=== PATIENT | male | born 1950 | race Caucasian/White ===

== ENCOUNTER 2017-05-28 09:38 | Inpatient (IN) | payer MEDICARE ==
[~2017-05-28] VITALS: Ht 177.8 cm; Wt 71.1 kg
[2017-05-28 09:52] VITALS: BP 158/79; PULSE 75; RESP 13; O2SAT 100
--- NOTE | 2017-05-28 09:53 | ED.REPORT ---
HPI-General Illness Date of Service May 28, 2017 ED Provider: Sixto Lux MD Patient is a 67 year old male who presents to the ED via EMS complaining of dizziness onset 0400 this morning. Associated symptoms include nausea, brief bilateral vision blurring, diarrhea (onset last night), and worsening headache. He denies difficulty speaking or swallowing, vision loss, numbness, weakness, tingling, vomiting, or any other symptoms. He reports increasing headaches over the past few months for which he takes OTC medications. He was given zofran en route with moderate relief. Pt denies a hx of a stroke. He has not been on abx recently. Nursing Notes Stated Complaint: DIZZINESS Chief Complaint: Male Abdominal Pain Nursing Notes Reviewed: Yes Allergies: Coded Allergies: No Known Allergies (Unverified , 05/28/17) No Active Prescriptions or Reported Meds General Time Seen by MD: 09:49 Chief Complaint Dizziness Hx Obtained From: Patient, Spouse Arrived By: Ambulance Similar Sx Previous: No Past Medical History Past Medical History Liver abscess Pre-diabetic Past Surgical History Liver abscess tube Family History Both parents had diabetes Smoking History Unknown if Ever Smoker Social History Drinks alcohol very rarely Other Social History: (partnered ) Ambulatory Status Independent Review of Systems -tingling Full Review of Systems Eyes: Reports: Blurred bilateral, Denies: Visual loss bilateral GI: Reports: Diarrhea, Nausea, Denies: Dysphagia, Vomiting Neurologic: Reports: Dizziness, Headache, Denies: Numbness, Slurred speech, Weakness Complete sys rev & neg: except as marked. Physical Exam Vital Signs Vital Signs Date Time Temp Pulse Resp B/P Pulse Ox O2 Delivery O2 Flow Rate FiO2 05/28/17 09:52 36.6 75 13 158/79 100 Room Air Initial VS: Reviewed, Vital signs abnormal Head / Eyes: Atraumatic, Normocephalic Neck: Supple, Full range of motion Skin: Warm, Dry Psychiatric: Mood/affect normal, Behavior normal, Normal thought content General/Constitutional: Awake, Alert, No acute distress Respiratory / Chest: Atraumatic, Breath sounds NL, Breath sounds = bilat, No respiratory distress Cardiovascular: Heart rate NL, Regular rhythm, Heart sounds NL, No murmurs Abdomen: Atraumatic, Soft, Non-tender Neurologic: Oriented X3, Speech NL, No motor deficits, No sensory deficits, CN II - XII intact Eibfuh-ydtx-nqizxa intact Heel to vang intact Interpretation & Diagnostics Lab Results Interpretation Result Diagram: 05/28/17 1023 05/28/17 1023 Test 05/28/17 10:23 White Blood Count 6.5th/mm3 (3.8-10.1) Red Blood Count 4.84mil/mm3 (4.40-5.80) Hemoglobin 14.8g/dL (13.8-17.2) Hematocrit 41.8% (41.0-50.0) Mean Corpuscular Volume 86.4fL (81-100) Mean Corpuscular Hemoglobin 30.6pg (27.0-35.0) Mean Corpuscular Hemoglobin Concent 35.4% (32.0-37.0) Red Cell Distribution Width 12.5% (12.3-15.4) Platelet Count 135bil/L (150-400) Neutrophils (%) (Auto) 46.9% (40-74) Lymphocytes (%) (Auto) 38.4% (14-46) Monocytes (%) (Auto) 9.8% (4-12) Eosinophils (%) (Auto) 3.5% (0-5) Basophils (%) (Auto) 1.4% (0-3) Sodium Level 137mEq/L (134-144) Potassium Level 4.1mEq/L (3.5-5.2) Chloride Level 101mEq/L (97-108) Carbon Dioxide Level 22mmol/L (18-29) Blood Urea Nitrogen 15mg/dL (8-27) Creatinine 1.01mg/dL (0.76-1.27) Estimat Glomerular Filtration Rate 78mL/min (>59) Glucose Level 220mg/dL (60-99) Calcium Level 9.3mg/dL (8.5-10.1) Total Bilirubin 0.7mg/dL (0.0-1.2) Aspartate Amino Transf (AST/SGOT) 21U/L (0-50) Alanine Aminotransferase (ALT/SGPT) 20U/L (0-44) Alkaline Phosphatase 72U/L (25-160) Troponin T 0.010ug/L (0.0-0.011) Total Protein 7.3g/dL (6.4-8.4) Albumin 4.1g/dL (3.4-5.0) Lipase 33U/L (13-60) Lab Results Interpretation: MRI BRAIN: IMPRESSION: 1. No acute intracranial disease process. 2. Foci of increased T2 signal in the periventricular and subcortical white matter tracts. Finding is nonspecific and of the patient's history typically represents chronic microvascular ischemic changes, however there is a single lesion in the right periventricular white matter that has imaging characteristics suspicious for multiple sclerosis. Please correlate with clinical data. 3. Absence of flow-void in the V4 segment of the left vertebral artery. Recommend MR angiogram of the head and neck to differentiate high grade atherosclerotic stenosis from proximal occlusion. Dictated by: Yolis Rader MD, PhD on 05/28/2017 at 13:01 Approved by: Yolis Rader MD, PhD on 05/28/2017 at 13:27 ECG Interpretation ECG Interpretation: sinus rate [address], T changes Q wave 3, AVF Unchanged from old Time: 10:38 Interpreted by: ED physician CT Head Interpretation IMPRESSION: 1. No acute intracranial findings. 2. Mild findings likely associated with chronic ischemic changes. Dictated by: Felicia Beauchamp M.D. on 05/28/2017 at 10:36 Approved by: Felicia Beauchamp M.D. on 05/28/2017 at 10:40 Study: Head CT no contrast Interpretation / Wet Read by: Interpret - Radiologist Re-Eval/Medical Decision Med Decision/Clinical Course 67-year-old male presenting with dizziness and difficulty ambulating on waking up today. He has an ataxic gait here which did not resolve throughout his time in our care. He had 15 point drop in systolic blood pressure on standing up. Symptoms did not resolve with IV fluids. His labs are unremarkable. CT scan pathology. MR brain was performed which showed left vertebral artery stenosis and lesion concerning for possible MS. Given he is still unable to ambulate which he has never had before patient will be admitted to the hospital for MRA and further workup. Time of Eval: 11:03 Re-Evaluation/Progress Note: Rechecked pt who reports he woke with his symptoms this morning. His last known normal is last night. Discussed plan for MRI and admission. Patient understands and agrees with plan. All questions addressed at this time. Consultation : Referral / Consult Name: Dejan Overton MD Consulted With: Hospitalist Call Returned at: 13:49 Horticulture Supervisor: Will see patient, Agrees with eval, Agrees with plan, Accepts admit Note: Discussed pt's case. Accepts admit. Counseled Regarding: Diagnosis, Lab results, Need for admission Discharge & Departure Primary Impression: Dizziness Additional Impression: Vertebral artery occlusion Laterality: unspecified laterality Qualified Code: I65.09 - Occlusion and stenosis of unspecified vertebral artery Disposition: ADMITTED TO HOSPITAL Discharge Condition All VS Reviewed: Yes Condition: Stable Referrals: NOPCP (PCP) Crit Care Except Billable Proc Time Spent: 30-74 minutes Services Performed: Patient management by me, Time spent at bedside, Reviewing test results, Reviewing imaging, Discussing patient care, Documentation in record, Time with fam/surrogate Critical Care Notes: 30 min Scribe Attestation Portions of this note were transcribed by Ramon Romero. I, Dr. Lux personally performed the history, physical exam and medical decision-making; I reviewed and confirmed the accuracy of the information in the transcribed note. Signed by: Juanjose Hassan, 05/28/17 Risk Factors )( TPA Administration/Criteria Stroke Thrombolytic Therapy : TPA Considered: Yes TPA Administered Intravenously: No, not indicated NIH Stroke Scale Level of Consciousness: Alert and responsive (0) Ask Month & Age: Both questions right (0) Open/Close Eyes/Hand Wrapper Stemmer Hand: Performs both tasks (0) Horizontal EO Movements: None (0) Visual Stephens: No visual loss (0) Facial Palsy: Normal symmetry (0) Right Arm Motor Drift (10s): No drift 10 sec (0) Left Arm Motor Drift (10s): No drift 10 sec (0) Right Leg Motor Drift (5s): No drift 5 sec (0) Left Leg Motor Drift (5s): No drift 5 sec (0) Limb Ataxia FNF/Heel-Vang: No ataxia (0) Sensation (Arms/Legs/Face): No sensory loss (0) Language Aphasia: No aphasia, normal (0) Dysarthria: No dysarthria, normal (0) Extinction/Inattention: No exctinct/inattent (0) NIHSS Score: 0 Time NIHSS Performed: 10:15 Date NIHSS Performed: May 28, 2017 )( CVA Risk Stratification Age >60No EtOH use, No Hyperlipidemia, No Prior CVA/TIA Risk factors reviewed Sixto Lux MD May 28, 2017 09:52 RAMON ROMERO May 28, 2017 10:07
[2017-05-28] MEDS ORDERED: 0.9% Sodium Chloride 500 ML IV ONE (10:18)
[2017-05-28] MEDS ORDERED: Ondansetron 2 mg/mL 2 mL Inj IVPUSH PRN ×3 (10:20→15:40)
[2017-05-28 10:27] LABS: BASOPHILS % (AUTO) 1.4 % (0-3); EOSINOPHILS % (AUTO) 3.5 % (0-5); MONOCYTES % (AUTO) 9.8 % (4-12); Mean Corpuscular Hemoglobin 30.6 pg (27.0-35.0); Mean Corpuscular Volume 86.4 fL (81-100); NEUTROPHILS % (AUTO) 46.9 % (40-74); Platelet Count 135 bil/L (150-400)
[2017-05-28 10:40] LABS: TROPONIN T 0.01 ug/L (0.0-0.011)
--- NOTE | 2017-05-28 10:41 | DRSVH ---
PROCEDURE: CT BRAIN WITHOUT CONTRAST ([id number]) INDICATIONS: dizziness TECHNIQUE: Noncontrast 4.5 mm thick angled axial sections acquired from the foramen magnum to the vertex, with c oronal reformats. COMPARISON: None. FINDINGS: Image quality: Excellent. CSF spaces: Basal cisterns are patent. No extra-axial fluid collections. The ventricles are symmet soledad in size and shape. Brain: No intracranial bleeds or masses. There is cerebral volume loss for age, with resultant vent ricular and sulcal prominence. There are periventricular and deep white matter chronic small vessel ischemic changes. There is intracranial internal carotid artery atherosclerosis. Skull and face: Calvarium and visualized facial bones appear intact, without suspicious lesions. Sinuses: Visualized sinuses and mastoids are clear. IMPRESSION: 1. No acute intracranial findings. 2. Mild findings likely associated with chronic ischemic changes. Dictated by: Felicia Beauchamp M.D. on 05/28/2017 at 10:36 Approved by: Felicia Beauchamp M.D. on 05/28/2017 at 10:40
--- NOTE | 2017-05-28 13:21 | NUR ---
Evaluation completed. Please go to "Notes" then click on "Assessments and Notes" (bottom left corner of screen). Then select appropriate discipline tab on top of screen.
--- NOTE | 2017-05-28 13:29 | DRSVH ---
PROCEDURE: MRI BRAIN WITHOUT CONTRAST ([id number]) INDICATIONS: dizziness TECHNIQUE: Non-contrast axial T1 spin echo, axial T2 fast spin echo, sagittal and axial FLAIR, coronal T2 fast s pin echo, axial gradient echo, axial diffusion and ADC through the brain. COMPARISON: [facility], CT, CT BRAIN WO CON, 05/28/2017, 10:29. FINDINGS: Image quality: Excellent. CSF spaces: Ventricles appear symmetric in size and shape. Basal cisterns are patent. No extra-axi al fluid collections. Brain: No intracranial bleeds or mass effects. There is cerebral volume loss for age. There are mul tiple foci of increased T2/flair signal the periventricular and subcortical white matter tracts. Sing le focus of increased T2 signal in the right periventricular white matter has a longitudinal axis per pendicular to long axis of the lateral ventricles. Brainstem appears normal. Diffusion-weighted imag es show no acute ischemic insults. No chronic ischemic insults. Absence of flow void noted in the V4 segment of the left vertebral artery suspicious for proximal occlusion or atherosclerotic high-grade stenosis. Skull and face: Calvarial bone marrow is normal in signal. Orbits are normal. Sinuses: Sinuses are clear. Trace fluid noted in the dependent portion of the mastoid air cells bila terally. IMPRESSION: 1. No acute intracranial disease process. 2. Foci of increased T2 signal in the periventricular and subcortical white matter tracts. Finding is nonspecific and of the patient's history typically represents chronic microvascular ischemic changes , however there is a single lesion in the right periventricular white matter that has imaging charact eristics suspicious for multiple sclerosis. Please correlate with clinical data. 3. Absence of flow-void in the V4 segment of the left vertebral artery. Recommend MR angiogram of the head and neck to differentiate high grade atherosclerotic stenosis from proximal occlusion. Dictated by: Yolis Rader MD, PhD on 05/28/2017 at 13:01 Approved by: Yolis Rader MD, PhD on 05/28/2017 at 13:27
[2017-05-28] MEDS ORDERED: Alum-Mag Hydrox-Simeth 30 mL Suspension PO PRN ×2 (14:15→15:40)
--- NOTE | 2017-05-28 14:31 | NUR ---
Admit Report received from Ed nurse. Awaiting patient from ED. Med Req and admission done by admit nurse.
[2017-05-28 14:43] VITALS: BP 155/74; PULSE 74; RESP 18; O2SAT 99
[2017-05-28 15:02] VITALS: BP 142/87; PULSE 75; PULSE 82; O2SAT 99
--- NOTE | 2017-05-28 15:08 | NUR ---
To [facility] patient arrived to unit approx 1455. BP 142/87, pulse 80, oxygen 98%, Temp 98.1. patient transferred from ED bed to unit bed with out any reports of further dizziness. Denies pain or discomfort. No reports of cardiac or respiratory distress. Alert and oriented x3. SBA ambulation. hospitalist aware. new orders for urinalysis. family history of diabetes, blood sugar per lab 220. admit and med req done. per patient no other home medications but Tylenol for [place] as needed. Call light with in reach for safety and educated. continue to monitor vital signs, pain, dizziness and safety.
[2017-05-28] MEDS ORDERED: Polyethylene Glycol (PEG) 17 Gm Powder PO PRN (15:40)
[2017-05-28] MEDS ORDERED: Labetalol 5 mg/mL 20 mL Inj IVPUSH PRN (15:40)
--- NOTE | 2017-05-28 17:09 | DRSVH ---
PROCEDURE: US BILATERAL DUPLEX DOPPLER IMAGING OF THE CAROTIDS ([id number]) INDICATIONS: R/O Carotid Disease if no MRA or CTA Neck TECHNIQUE: Color and pulse Doppler interrogation was performed of both carotid systems, with image documentation and velocity measurements. COMPARISON: None. FINDINGS: All stenosis calculations are based on NASCET criteria. Right side: Brachial blood pressure: 143/79 mm Hg. Common Carotid Artery(Distal) PSV: 89.80 cm/s Internal Carotid Artery PSV- Proximal: 83 cm/s Mid-lon.20 cm/s Distal: 99.40 cm/s EDV - Proximal: 17.10 cm/s Mid-lon.20 cm/s Distal: 26.10 cm/s External Carotid Artery(Proximal) PSV: 79.50 cm/s ICA/CCA PSV ratio: 1.1 Dee scale imaging description: Moderate plaque. Percent internal carotid artery stenosis: Less than 50% stenosis. Vertebral artery: Flow direction is antegrade. Left side: Brachial blood pressure: 145/75 mm Hg. Common Carotid Artery(Distal) PSV: 97.50 cm/s Internal Carotid Artery PSV - Proximal: 73.40 cm/s Mid-lon.20 cm/s Distal: 90.70 cm/s EDV - Proximal: 14.20 cm/s Mid-lon.70 cm/s Distal: 25.30 cm/s External Carotid Artery(Proximal) PSV: 88.20 cm/s ICA/CCA PSV ratio: 0.9 Dee scale imaging description: Moderate scattered plaque. Percent internal carotid artery stenosis: Less than 50% stenosis. Vertebral artery: No flow detected. IMPRESSION: Less than 50% bilateral internal carotid artery stenosis. No flow visualized within the left vertebral artery. Dictated by: Stan Cruz [facility] Interpreted: Yolis Rader MD on 05/28/2017 at 16:55 Approved by: Yolis Rader MD, PhD on 05/28/2017 at 17:05
[2017-05-28] MEDS ORDERED: Glucose 40% Oral Gel 15 Gm Tube PO PRN (17:10)
--- NOTE | 2017-05-28 17:10 | PCM.HPMED ---
Subjective Date of Service May 28, 2017 Primary Provider: Admitting Physician: Dejan Overton MD Primary Care Physician: Sam Attending Physician: Dejan Overton MD Admit Status: From the Emergency Department, Admit to [place] Team Chief Complaint: Dizziness History of Present Illness: 67-year-old lb male with history of prediabetes, no other significant known past medical history presenting to the emergency department complaining of dizziness for 1 day. Associated symptoms include nausea, brief bilateral vision blurring, and worsening headache. He denies difficulty speaking or swallowing, vision loss, numbness, weakness, tingling, vomiting, or any other symptoms. Did have episode of diarrhea. Patient does endorse headaches over the last few months which responded to Tylenol. Never had any similar symptoms in the past. Denies any medication changes Review of Systems: 12 point review of symptoms negative except without any history of present illness Allergies Coded Allergies: No Known Allergies (Unverified , 05/28/17) PMH Social History Hx Alcohol Use: Yes ("occasionally") Hx Substance Use: No Smoking Status: Unknown if Ever Smoker Exam Vital Signs Vital Sign - Last Date Time Temp Pulse Resp B/P Pulse Ox O2 Delivery O2 Flow Rate FiO2 05/28/17 15:02 36.7 75 142/87 99 Room Air 05/28/17 14:43 18 Lab and Diagnostics Result Diagram: 05/28/17 1023 05/28/17 1023 Assessment & Plan 67-year-old lb male with history of prediabetes, no other significant known past medical history presenting to the emergency department complaining of dizziness for 1 day. Associated symptoms include nausea, brief bilateral vision blurring, and worsening headache found to have ataxic gait in ED admitted to rule out Posterior Circulation CVA. Gait Ataxia due to suspected Posterior CVA-poa, active. may be posterior circulation issue. Differential included Vertigo. Review med. MRI Brain- no acute infarct noted. Absence of flow-void in the V4 segment of the left vertebral artery. Radiology Recommend MR angiogram of the head and neck to differentiate high grade atherosclerotic stenosis from proximal occlusion. rule out Posterior Circulation CVA. Echo ordered, Carotid US ordered. Med Management- asa/statin. PT/OT ordered. PreDiabetes- chronic, active Check A1C, fingerstick TID. Added SSI medium dose. Headache, acute, active Tylenol prn. Acetaminophen for mild pain when necessary. Bowel regimen Senna and MiraLAX scheduled and PRN. Zofran when necessary for nausea and vomiting. Code- Full Dispo- Patient is admitted under observation status expected length of stay less than 2 midnights due to severity of presenting symptoms, risk of adverse events, and complexity of treatment plan. Pain Evaluation: Adequate Pain Control VTE Prophylaxis: Sub-Q Heparin (Unfractionated) Resuscitation Status: CPR: Attempt Resuscitation Dejan Overton MD May 28, 2017 17:10
[2017-05-28 17:33] LABS: APPEARANCE,URINE CLEAR (CLEAR,HAZY); COLOR,URINE YELLOW (YELLOW); OCCULT BLOOD,URINE NEGATIVE (NEGATIVE); UROBILINOGEN,URINE NORMAL (NORMAL)
[2017-05-28] MEDS: Insulin LISPRO 300 Unit/3 mL Inj SUBQ SCH ×2 (18:22→22:15)
[2017-05-28] MEDS: 0.9% Sodium Chloride 1,000 ML IV SCH (18:23)
--- NOTE | 2017-05-28 18:33 | NUR ---
Mentation Calm and cooperative mood. per lab glucose 220 and blood sugar prior to dinner 166, new orders for sliding scale and A1c pending. Urine sample sent to lab. Carotid US done this shift. New orders for PT, OT, and MR angio with contrast. no skin issues noted per assessment. per patient report liver abscess long time ago when in [place] and had received IV ABO. Swallow screen done by RN per assessment followed. per patient no prior cardiac, respiratory, GI, or neurological history. Denies sign and symptoms of pain or dizziness. SBA for ambulation at this time but prior level of ADL's at home independent and adequate per patient. Diet Dysphagia mechanical with thin fluids for dinner with no signs of aspiration or swallowing difficulty. IV fluids per orders. On Tele, per budget technician S100. Stroke education booklet provided. Call light with in reach and verbalize understanding. Continue to monitor.
[2017-05-28 21:03] VITALS: BP 146/89; PULSE 77; RESP 18; O2SAT 97
[2017-05-29] VITALS (9 sets, daily range): BP systolic 107–154; BP diastolic 67–78; PULSE 74–82; RESP 16–18; O2SAT 95–98
[2017-05-29] MEDS: 0.9% Sodium Chloride 1,000 ML IV SCH (06:32)
[2017-05-29] MEDS: Insulin LISPRO 300 Unit/3 mL Inj SUBQ SCH ×4 (08:12→22:39)
[2017-05-29] MEDS: Heparin 5,000 Unit/mL Inj SUBQ SCH ×3 (08:12→23:43)
--- NOTE | 2017-05-29 09:22 | NUR ---
Evaluation completed. Please go to "Notes" then click on "Assessments and Notes" (bottom left corner of screen). Then select appropriate discipline tab on top of screen.
[2017-05-29] MEDS ORDERED: 0.9% Sodium Chloride 500 ML IV ONE (10:05)
--- NOTE | 2017-05-29 10:39 | NUR ---
Case Management: ANGELIC given and explained to pt. Shikha BRANDRN
--- NOTE | 2017-05-29 11:34 | DRSVH ---
PROCEDURE: MRA ANGIOGRAM HEAD WITHOUT CONTRAST ([id number]) INDICATIONS: R/O Intracrainal Disease If CTA Head/Neck is Contr TECHNIQUE: Noncontrast axial 3-D lqoc-tj-dulles MR angiogram, with 3-dimensional maximum intensity projection (M IP) reformats of the internal carotid arteries and posterior circulation then performed. COMPARISON: [facility], MR, MR ANGIO NECK W&WO CON, 05/29/2017, 10:55. [facility], MR, MR BRAIN WO CON, 05/28/2017, 12:39. [facility], CT, CT BRAIN WO CON, 05/28/2017 , 10:29. FINDINGS: Image quality: Excellent. Anterior circulation: Intracranial internal carotid arteries demonstrate normal size and intralumina l flow signal. The flow within the paired anterior cerebral arteries is normal and symmetric. The f low within the middle cerebral arteries is normal and symmetric. The anterior communicating artery i s seen. No stenoses, occlusions, or aneurysms. Posterior circulation: There is a dominant right vertebral artery. The basilar artery appears patent and unremarkable. There is occlusion of the distal left vertebral artery versus congenital atresia.Th e flow within the posterior cerebral arteries is normal and symmetric. 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 Dominant right vertebral artery Otherwise, remainder of the examination within normal limits Dictated by: Karsten Edwards M.D. on 05/29/2017 at 10:26 Approved by: Karsten Edwards M.D. on 05/29/2017 at 10:32
--- NOTE | 2017-05-29 11:39 | DRSVH ---
PROCEDURE: MRA ANGIOGRAM NECK WITH AND WITHOUT CONTRAST ([id number]) INDICATIONS: R/O Carotid Disease TECHNIQUE: Axial and sagittal TruFISP through the neck. Coronal dynamic MRA after the administration of contras t in the arterial and venous phases, with rotating 3-dimensional maximum intensity projection (MIP) r eformats constructed from subtraction images. COMPARISON: None. FINDINGS: Image quality: Excellent. Carotid system: Great vessels demonstrate a conventional anatomy as they arise from the aortic arch. The origins of the common carotid arteries appear normal. The calibers and courses of the common c arotid arteries are likewise normal. The carotid bifurcations appear normal bilaterally. The r d internship al carotid arteries are widely patent up to the [place] of [place]. Posterior circulation: The origin of the left vertebral artery is not well-seen. There is diffuse dim inutive appearance of the left vertebral artery, demonstrating minimal flow until the V4 segment, whe re there is occlusion The right vertebral artery is dominant. There is a normal appearing basilar artery. Miscellaneous: Subclavian arteries are patent throughout. Pre-contrast images through the neck demo nstrate no soft tissue abnormalities. IMPRESSION: No ICA stenosis seen. Diffuse narrowing of the left vertebral artery, with occlusion of the V4 segment. This is presumably due to atherosclerosis versus congenital atresia. Patent dominant right vertebral artery. The estimate of stenosis included in the report of the imaging study was calculated using the NASCET method Dictated by: Karsten Edwards M.D. on 05/29/2017 at 10:33 Approved by: Karsten Edwards M.D. on 05/29/2017 at 10:38
--- NOTE | 2017-05-29 12:12 | DRSVH ---
[facility] [address] [place] [address] Echocardiogram Report Name: KAYLENE HAMILTONudsuni Pantera e: 05/29/2017 Height: 70 in Hospital Exam Location: [facility] Weight: 159 lb Gender: Male BSA: 1.9 m2 : 1950 Age: 67 yrs BP: 153/75 mmHg Reason For Study: CVA Ordering Physician: HOSPITALIST [facility] Performed By: Luna Hoover Referring Physician: Haresh Londono Interpretation Summary The left ventricle is normal in size, wall thickness, and systolic function without any focal wall motion abnormalities. The ejection fraction is estimated to be 60-65%. The right ventricle is normal size. Right ventricular systolic function is at the lower limits of normal. Pulmonary artery pressures cannot be estimated because of the lack of a measurable TR jet velocity. The left atrial size is normal. Right atrial size is normal. The atrial septum is aneurysmal. Injection of contrast documented no interatrial shunt. There is no significant valvular heart disease. Procedure: A two-dimensional transthoracic echocardiogram with color flow and Doppler was performed. The study quality was technically adequate. There is no prior echocardiogram noted for this patient. A saline contrast injection was performed to assess for cardiac shunting. The patient was in normal sinus rhythm during the exam. Left Ventricle: The left ventricle is normal in size, wall thickness, and systolic function without any focal wall motion abnormalities. The ejection fraction is estimated to be 60-65%. Right Ventricle: The right ventricle is normal size. Right ventricular systolic function is at the lower limits of normal. Atria: The left atrial size is normal. Right atrial size is normal. The atrial septum is aneurysmal. Injection of contrast documented no interatrial shunt. Mitral Valve: The mitral valve is normal in structure and function. There is trace mitral regurgitation. Aortic Valve: The aortic valve is normal in structure and function. No aortic regurgitation is present. Tricuspid Valve: The tricuspid valve is normal. There is a trace or physiologic amount of tricuspid regurgitation. Pulmonary artery pressures cannot be estimated because of the lack of a measurable TR jet velocity. Pulmonic Valve: The pulmonic valve is normal in structure and function. There is trace pulmonic regurgitation. There is no significant valvular heart disease. Great Vessels: The aortic root is normal size. The dimensions of the ascending aorta are normal. The aortic arch is normal in size. The pulmonary artery is normal size. The IVC is of normal diameter and collapses greater than 50% with a sniff. This suggests a low right atrial pressure of 3 mm Hg. Pericardium/ Pleura There is no pericardial effusion. There is no pleural effusion. MMode/2D Measurements & Calculations LVIDd: 4.7 cm LVIDs: 3.4 cm LA A2 area: 17.6 cm FS: 27.3 % LA A4 area: 15.6 cm EPSS: 1.0 cm LA length (vol): 4.4 cm IVSd: 1.0 cm LA vol: 52.4 ml LVPWd: 1.2 cm LA vol index: 27.7 ml/m IVC diam: 1.8 cm RA long axis: 5.1 cm LVOT diam: 2.2 cm RA area: 15.7 cm AoV Openin.9 cm RA vol: 40.7 ml Ao root diam: 3.7 cm RA : 21.5 ml/m2 asc Aorta Diam: 3.4 cm Ao Arch Diam (Prox Trans): 2.7 cm LV barber. diameter/BSA (cm/m^2): 2.5 LV sys. diameter/BSA (cm/m^2): 1.8 RVD1 (basal): 3.8 cm TAPSE: 1.7 cm Doppler Measurements & Calculations Ao V2 max: 120.3 cm/sec MV E max hi: 85.8 cm/sec Ao max P.8 mmHg MV A max hi: 92.0 cm/sec Ao mean P.4 mmHg MV P1/2t: 52.9 msec LVOT Max Hi: 84.7 cm/sec ARMANDO(I,D): 2.9 cm sev ratio: 0.73 MV E/A: 0.93 PA V2 max: 67.5 cm/sec Med Peak E' Hi: 3.3 cm/sec PA mean P.1 mmHg E/E' med: 26.3 Lat Peak E' Hi: 5.2 cm/sec E/E' lat: 16.6 E/e' average: 21.5 MV dec time: 0.18 sec MV P1/2t max hi: 85.3 cm/sec MVA(P1/2t): 4.2 cm2 Ao V2 mean: 90.0 cm/sec LV V1 max P.9 mmHg Ao V2 VTI: 23.4 cm LV V1 VTI: 17.1 cm ARMANDO(V,D): 2.8 cm2 PA V2 mean: 49.7 cm/sec ARMANDO indexed to BSA (cm^2/m^2): 1.5 Reading Physician:KAMI
--- NOTE | 2017-05-29 13:47 | NUR ---
NUTRITION ASSESSMENT: ASSESS: 67YO M , new dx DM, CVA workup, s/p MRI showing no acute infarct, additional tests pending. Consult received re diabetes education. Pt reports he eats what he wants, is willing to reduce portion sizes and cut pop intake down from 2cups to 1/2 cup per day. Interested in outpatient dm education. Diet modified per ST related to edentulousness. PMHX: Pre-DM, DIET: Dysphagia Mechanical. PO 50% LABS: Alb 4.1 MEDS: Reviewed GI: +BM WEIGHT: 72.3kg BMI: 22.9 EST.NEEDS: 3699-7982 kcal, 70-90g pro (25-30kcal/kg;1.0-1.2g/kg pro) NUTRITION DIAGNOSIS: (1) Food and nutrition related knowledge deficit related to new dm dx as evidenced by no h/o dm education. (2) Chewing difficulty related to pt being edentulous as evidenced by modified diet texture per ST. INTERVENTION: (1) Diet per ST (2) Pt provided diet education. MOC RN referred re glucometer teaching. Pt referred for outpatient dm education. MONITOR/EVALUATE: PO intake, texture tolerance, lab values. F/U per moderate risk.
--- NOTE | 2017-05-29 13:52 | NUR ---
Case Management: IMM given and explained to pt. Shikha BRANDRN
[2017-05-29] MEDS: Insulin GLARgine 100 Unit/mL Syringe SUBQ SCH (13:56)
--- NOTE | 2017-05-29 15:27 | PCM.PNMED ---
Subjective Date of Service May 29, 2017 Subjective Pt reports improved dizziness with standing. Ortho Vital signs positive again in AM. Exam Vital Signs Vital Sign - Last Date Time Temp Pulse Resp B/P Pulse Ox O2 Delivery O2 Flow Rate FiO2 05/29/17 12:24 36.7 78 18 150/78 98 Room Air 152/74 131/73 Intake and Output 05/28/17 05/28/17 05/29/17 Cumulative From/Thru 14:59 22:59 06:59 05/28/17 09:52 - 05/29/17 06:45 Intake Total 500 ml 1067 ml 1567 ml Balance 500 ml 1067 ml 1567 ml Intake Oral 100 ml 100 ml IV Total 500 ml 967 ml 1467 ml # Voids 2 2 # Bowel Movements 1 1 Exam Gen: NAD, AOx4, HEENT: NCAT, PERRLA, EOMI, MMM, sclera anicteric. Neck: Soft, supple, no thyromegaly/JVD/LAD. Resp: CTAB, no R/R/W. CV: S1 S2, RRR, No M/R/G Abd: Soft, (+) BS, NT/ND, no guarding/rebound/organomegaly. Ext: +PP, No edema. Skin: warm/dry/intact Neuro/Psych: Cooperative, appr mood/affect. CN II-XII grossly intact. No focal deficits. IVs and Medications Medications Reviewed: Medications were reviewed in detail Lab and Diagnostics Result Diagram: 05/28/17 1023 05/28/17 1023 X-Rays, CTs and MRIs 05/29/17 MRA ANGIOGRAM NECK WITH AND WITHOUT CONTRAST IMPRESSION: No ICA stenosis seen. Diffuse narrowing of the left vertebral artery, with occlusion of the V4 segment. This is presumably due to atherosclerosis versus congenital atresia. Patent dominant right vertebral artery. 05/29/17 MRA ANGIOGRAM HEAD WITHOUT CONTRAST Occlusion of the distal left vertebral artery. Dominant right vertebral artery Otherwise, remainder of the examination within normal limit 05/29/17 Carotid US- Less than 50% bilateral internal carotid artery stenosis. No flow visualized within the left vertebral artery. 05/29/17 MRI BRAIN WITHOUT CONTRAST 1. No acute intracranial disease process. 2. Foci of increased T2 signal in the periventricular and subcortical white matter tracts. Finding is nonspecific and of the patient's history typically represents chronic microvascular ischemic changes, however there is a single lesion in the right periventricular white matter that has imaging characteristics suspicious for multiple sclerosis. Please correlate with clinical data. 3. Absence of flow-void in the V4 segment of the left vertebral artery. Recommend MR angiogram of the head and neck to differentiate high grade atherosclerotic stenosis from proximal occlusion. 05/28/17 CT BRAIN WITHOUT CONTRAST 1. No acute intracranial findings. 2. Mild findings likely associated with chronic ischemic changes. Assessment & Plan 67-year-old pleasant male with history of prediabetes, no other significant known past medical history presenting to the emergency department complaining of dizziness for 1 day. Associated symptoms include nausea, brief bilateral vision blurring, and worsening headache found to have ataxic gait in ED admitted to rule out Posterior Circulation CVA. with finding of Gait Ataxia-poa, active. No evidence of CVA, May be due to possible vertebral insufficiency from Left Vertebral Aa Occulsion noted on MRA neck and Carotid US. Differential included Vertigo, less likely. . Rule out Posterior Circulation CVA. -Ortho VS were positive. Given IVF, suspect component of hypovolemia. +Ortho would be consistent with vertebral insufficiency. -Echo ordered, Carotid US ordered. -Med Management- asa/statin. -PT/OT ordered. -Cardiac Monitoring- no events. Left Vertebral Aa Occulsion per MRA, poa active. Initially seem on MRI Brain in V4 segment of the left vertebral artery. Carotid US and MRA also suggestive of occlusion. Likely due to atherosclerotic plaque. - Discussed case with Neuro, rec CTA Head/Neck as more reliable. -Med management as above. Newly diagnosed Diabetes- chronic, active - A1C of 9.3 - Pt has agreen to start Insulin therapy. Start with Lantus 10 units. - Upon discharge will add Metformin if renal function appropriate. For now cover with SSI medium dose. - Establish new PCP who will need to further manage Diabetes. Would need follow up 1-2 weeks. Headache, acute, resolved. Tylenol prn. Acetaminophen for mild pain when necessary. Bowel regimen Senna and MiraLAX scheduled and PRN. Zofran when necessary for nausea and vomiting. Code- Full Dispo- Patient is admitted under observation status expected length of stay less than 2 midnights due to severity of presenting symptoms, risk of adverse events, and complexity of treatment plan. Pain Evaluation: Adequate Pain Control VTE Prophylaxis: Sub-Q Heparin (Unfractionated) Resuscitation Status: CPR: Attempt Resuscitation Dejan Overton MD May 29, 2017 15:27
--- NOTE | 2017-05-29 18:40 | NUR ---
Fluids and Insulin Admission for dizziness. Orthostatic hypotension +. Provider notified. NS 500ml bolus. Recheck orthos remain + but reduced. IVF infusing at this time. Pre DM on admission. Correctional coverage and Lantus this shift. DM education ordered. Insulin teaching started with pt and pt's partner. ACHS checks continue at this time.
--- NOTE | 2017-05-29 19:49 | DRSVH ---
PROCEDURE: CT ANGIOGRAPHY OF THE NECK WITH AND WITHOUT CONTRAST ([id number]) INDICATIONS: Left Vertebral Artery V4 Seg Occlusion on MRA TECHNIQUE: After the administration of intravenous contrast, 1.5 mm axial sections acquired from the aortic arch to the [place] of [place]. Coronal 3-D maximum intensity projection (MIP) and/or volume rendering ref ormats were then performed. For radiation dose reduction, the following was used: automated exposur e control. COMPARISON: [facility], MR, MR BRAIN WO CON, 05/28/2017, 12:39. [facility], MR, MR ANGIO NECK W&WO CON, 05/29/2017, 10:55. [facility], MR, MR ANGIO HEAD WO CON, 05/29, 10:55. FINDINGS: Image quality: Excellent. The study is to evaluate the left vertebral artery. It is attenuated throughout. There is no normal l eft vertebral artery appreciated with contrast. The right is robust and widely patent. The vertebral foramen at the vertebral levels on the left is normal compared to the right. In the pos terior fossa a contrast study is atherosclerotic calcification demonstrates that there was once a nor mal left vertebral artery. The appearance of this very attenuated flow in small side branches is cons istent with an old possibly slow obstruction. There is no infarct seen in the posterior fossa. IMPRESSION: 1. The appearance of the prominent diffusely open right vertebral artery and the extremely attenuated left vertebral artery is noted as on the MRI. There is no abnormal size lumen of the left vertebral artery from the takeoff of the vertebral artery from the subclavian to the basilar artery. There is h owever calcifications indicating that there was once a normal left vertebral artery. The lack of any normal artery throughout its entire course would indicate long-standing disease. This is not the appe arance of a dissection. The estimate of stenosis included in the report of the imaging study was calculated using the NASCET method Dictated by: Christopher Villalpando M.D. on 05/29/2017 at 19:26 Approved by: Christopher Villalpando M.D. on 05/29/2017 at 19:47
[2017-05-30 05:22] VITALS: BP_SYST 100; BP_SYST 147; BP_SYST 95; BP_DIAS 60; BP_DIAS 66; BP_DIAS 77; PULSE 77; RESP 18; O2SAT 97
[2017-05-30] MEDS: 0.9% Sodium Chloride 1,000 ML IV SCH ×2 (05:56→09:55)
[2017-05-30 06:06] VITALS: PULSE 88
[2017-05-30] MEDS: Insulin LISPRO 300 Unit/3 mL Inj SUBQ SCH ×2 (08:00→12:00)
[2017-05-30] MEDS: Heparin 5,000 Unit/mL Inj SUBQ SCH (08:23)
[2017-05-30] MEDS: Insulin GLARgine 100 Unit/mL Syringe SUBQ SCH (08:23)
[2017-05-30 08:54] VITALS: PULSE 77
[2017-05-30 09:01] VITALS: BP 130/76; PULSE 78; RESP 18; O2SAT 97
[2017-05-30] MEDS ORDERED: INSU100V7 SUBQ (11:33)
[2017-05-30] MEDS ORDERED: ATOR10TA66 PO (11:33)
[2017-05-30] MEDS ORDERED: LANC1COM MC (11:33)
[2017-05-30] MEDS ORDERED: ASPI325T32 PO (11:33)
[2017-05-30] MEDS ORDERED: METF500T PO (11:33)
[2017-05-30] MEDS ORDERED: SYRI-1324 MC (11:33)
--- NOTE | 2017-05-30 11:33 | PCM.DC.MED ---
Discharge Summary Date of Service May 30, 2017 Dates of Hospitalization Date of Hospital Admission May 28, 2017 at 13:34 Date of Discharge: May 30, 2017 Providers: Admitting Physician: Dejan Overton MD Primary Care Physician: Sam Attending Physician: Dejan Overton MD Diagnosis at Time of Discharge Diagnosis at Time of Discharge Gait Ataxia-poa, active. Left Vertebral Aa Occulsion per MRA, poa active. Newly diagnosed Diabetes- chronic, active Headache, acute, resolved. Procedures XRay, CTs & MRIs 05/29/17- CT ANGIOGRAPHY OF THE NECK WITH AND WITHOUT CONTRAST IMPRESSION: The appearance of the prominent diffusely open right vertebral artery and the extremely attenuated left vertebral artery is noted as on the MRI. There is no abnormal size lumen of the left vertebral artery from the takeoff of the vertebral artery from the subclavian to the basilar artery. There is however calcifications indicating that there was once a normal left vertebral artery. The lack of any normal artery throughout its entire course would indicate long- standing disease. This is not the appearance of a dissection 05/29/17 MRA ANGIOGRAM NECK WITH AND WITHOUT CONTRAST IMPRESSION: No ICA stenosis seen. Diffuse narrowing of the left vertebral artery, with occlusion of the V4 segment. This is presumably due to atherosclerosis versus congenital atresia. Patent dominant right vertebral artery. 05/29/17 MRA ANGIOGRAM HEAD WITHOUT CONTRAST Occlusion of the distal left vertebral artery. Dominant right vertebral artery Otherwise, remainder of the examination within normal limit 05/29/17 Carotid US- Less than 50% bilateral internal carotid artery stenosis. No flow visualized within the left vertebral artery. 05/29/17 MRI BRAIN WITHOUT CONTRAST 1. No acute intracranial disease process. 2. Foci of increased T2 signal in the periventricular and subcortical white matter tracts. Finding is nonspecific and of the patient's history typically represents chronic microvascular ischemic changes, however there is a single lesion in the right periventricular white matter that has imaging characteristics suspicious for multiple sclerosis. Please correlate with clinical data. 3. Absence of flow-void in the V4 segment of the left vertebral artery. Recommend MR angiogram of the head and neck to differentiate high grade atherosclerotic stenosis from proximal occlusion. 05/28/17 CT BRAIN WITHOUT CONTRAST 1. No acute intracranial findings. 2. Mild findings likely associated with chronic ischemic changes. Brief History 67-year-old pleasant male with history of prediabetes, no other significant known past medical history presenting to the emergency department complaining of dizziness for 1 day. Associated symptoms include nausea, brief bilateral vision blurring, and worsening headache. He denies difficulty speaking or swallowing, vision loss, numbness, weakness, tingling, vomiting, or any other symptoms. Did have episode of diarrhea. Patient does endorse headaches over the last few months which responded to Tylenol. Never had any similar symptoms in the past. Denies any medication changes Hospital Course 67-year-old pleasant male with history of prediabetes, no other significant known past medical history presenting to the emergency department complaining of dizziness for 1 day. Associated symptoms include nausea, brief bilateral vision blurring, and worsening headache found to have ataxic gait in ED admitted to rule out Posterior Circulation CVA. with finding of Gait Ataxia-poa, active. No evidence of CVA, May be due to possible vertebral insufficiency from Left Vertebral Aa Occulsion noted on MRA neck and Carotid US. Differential included Vertigo, less likely. . Rule out Posterior Circulation CVA. -Ortho VS were positive. Given IVF, suspect component of hypovolemia. +Ortho would be consistent with vertebral insufficiency. -Echo ordered, Carotid US ordered. -Med Management- asa/statin. -PT/OT ordered. -Cardiac Monitoring- no events. Left Vertebral Aa Occulsion per MRA, poa active. Initially seem on MRI Brain in V4 segment of the left vertebral artery. Carotid US and MRA also suggestive of occlusion. Likely due to atherosclerotic plaque. - Discussed case with Neuro, rec CTA Head/Neck as more reliable. - CTA- indicate long-standing disease. This is not the appearance of a dissection - Med management as above. Newly diagnosed Diabetes- chronic, active - A1C of 9.3 - Pt has agreen to start Insulin therapy. Start with Lantus 10 units. - Upon discharge added Metformin. - Establish new PCP who will need to further manage Diabetes. Would need follow up 1-2 weeks. - Use Glucometer and strips to check blood sugars threes times a day with meals and in evening as directed. Headache, acute, resolved. Tylenol prn. Acetaminophen for mild pain when necessary. Bowel regimen Senna and MiraLAX scheduled and PRN. Zofran when necessary for nausea and vomiting. Code- Full Dispo- Patient is admitted under observation status expected length of stay less than 2 midnights due to severity of presenting symptoms, risk of adverse events, and complexity of treatment plan. - Use Glucometer and strips to check blood sugars threes times a day with meals and in evening as directed. - Take 10 units of Lantus nightly as directed. - Start Metformin tonight. Added Aspirin and Atorvastatin. - Will need to establish care and follow up with a primary doctor in 1-2 weeks. See contact information attached. - Will likely need referral to Neurology to be arranged at your first primary care appointment. Exam Vital Signs (Last) Date Time Temp Pulse Resp B/P Pulse Ox O2 Delivery O2 Flow Rate FiO2 05/30/17 09:01 36.9 78 18 130/76 97 Room Air Test 05/28/17 10:23 05/28/17 17:17 05/30/17 05:41 White Blood Count 6.5th/mm3 (3.8-10.1) Red Blood Count 4.84mil/mm3 (4.40-5.80) Hemoglobin 14.8g/dL (13.8-17.2) Hematocrit 41.8% (41.0-50.0) Mean Corpuscular Volume 86.4fL (81-100) Mean Corpuscular Hemoglobin 30.6pg (27.0-35.0) Mean Corpuscular Hemoglobin Concent 35.4% (32.0-37.0) Red Cell Distribution Width 12.5% (12.3-15.4) Platelet Count 135bil/L (150-400) Neutrophils (%) (Auto) 46.9% (40-74) Lymphocytes (%) (Auto) 38.4% (14-46) Monocytes (%) (Auto) 9.8% (4-12) Eosinophils (%) (Auto) 3.5% (0-5) Basophils (%) (Auto) 1.4% (0-3) Hemoglobin A1c 9.3% (4.8-5.6) Total Bilirubin 0.7mg/dL (0.0-1.2) Aspartate Amino Transf (AST/SGOT) 21U/L (0-50) Alanine Aminotransferase (ALT/SGPT) 20U/L (0-44) Alkaline Phosphatase 72U/L (25-160) Troponin T 0.010ug/L (0.0-0.011) Total Protein 7.3g/dL (6.4-8.4) Albumin 4.1g/dL (3.4-5.0) Triglycerides Level 133mg/dL (0-149) Cholesterol Level 169mg/dL (100-199) LDL Cholesterol, Calculated 108.400mg/dL (0-99) VLDL Cholesterol 26.600mg/dL HDL Cholesterol 34mg/dL (>39) Cholesterol/HDL Ratio 4.97 (0.0-4.4) Lipase 33U/L (13-60) Urine Color Yellow (YELLOW) Urine Appearance Clear (CLEAR,HAZY) Urine pH 6.0 (5.0-8.0) Urine Specific [place] 1.020 (1.003-1.035) Urine Protein Negativemg/dL (NEG,TRACE) Urine Glucose (UA) 250mg/dL (NEGATIVE) Urine Ketones Negativemg/dL (NEGATIVE) Urine Occult Blood Negative (NEGATIVE) Urine Nitrite Negative (NEGATIVE) Urine Bilirubin Negative (NEGATIVE) Urine Urobilinogen Normalmg/dL (NORMAL) Urine Leukocyte Esterase Negative (NEGATIVE) Urine RBC 0-2/hpf (0-2) Urine WBC 0-5/hpf (0-5) Urine Epithelial Cells None/hpf (NONE-MOD) Urine Crystals None seen (NONE SEEN) Urine Bacteria None/hpf (NONE-FEW) Urine Hyaline Casts None/lpf (NONE) Urine Granular Casts None seen (NONE SEEN) Urine Waxy Casts None seen (NONE SEEN) Urine Red Blood Cell Casts None seen (NONE SEEN) Urine White Blood Cell Casts None seen (NONE SEEN) Urine Mucus None seen (None Seen) Urine Trichomonas None seen (NONE SEEN) Urine Yeast None (NONE SEEN) Urinalysis Comment None Urine Culture Reflexed Not indicated Sodium Level 140mEq/L (134-144) Potassium Level 3.9mEq/L (3.5-5.2) Chloride Level 101mEq/L (97-108) Carbon Dioxide Level 23mmol/L (18-29) Blood Urea Nitrogen 9mg/dL (8-27) Creatinine 0.98mg/dL (0.76-1.27) Estimat Glomerular Filtration Rate 81mL/min (>59) Glucose Level 134mg/dL (60-99) Calcium Level 9.2mg/dL (8.5-10.1) Discharge Medications No Active Prescriptions or Reported Meds Additional med instructions - Take 10 units of Lantus nightly as directed. - Start Metformin tonight. Added Aspirin and Atorvastatin. Followup Plan Disposition: Home Follow-up plan - Will need to establish care and follow up with a primary doctor in 1-2 weeks. See contact information attached. - Will likely need referral to Neurology to be arranged at your first primary care appointment. Contact information for a Neurologist is included and can try to book the appointment directly. Follow-up Provider: [facility] Follow-up with PCP in: 1 week Provider: Pari Monreal MD Time spent Greater than 30 minutes was spent in preparation of discharge with greater than 50% of that time dedicated to patient counseling and coordination of care. copies to: [facility] Dejan Overton MD May 30, 2017 11:33
--- NOTE | 2017-05-30 11:37 | PCM.DIMED ---
Discharge Instructions Date of Service May 30, 2017 Dates of Hospitalization May 28, 2017 at 13:34 Discharge Diagnosis Discharge Diagnosis Gait Ataxia-poa, active. Left Vertebral Aa Occulsion per MRA, poa active. Newly diagnosed Diabetes- chronic, active Headache, acute, resolved. Medication Instructions Additional med instructions - Take 10 units of Lantus nightly as directed. - Start Metformin tonight. Added Aspirin and Atorvastatin. Patient Instructions Follow-up plan - Will need to establish care and follow up with a primary doctor in 1-2 weeks. See contact information attached. - Will likely need referral to Neurology to be arranged at your first primary care appointment. Contact information for a Neurologist is included and can try to book the appointment directly. Follow-up Provider: [facility] Follow-up with PCP in: 1 week Provider: Pari Monreal MD, Navdeep MD May 30, 2017 11:37
--- NOTE | 2017-05-30 11:58 | NUR ---
Social Work- Initial Assessment/Discharge/Multidisciplinary Rounds Data: See Initial Assessment. Pt is a 67 year male admitted for CP. Pt's insurance is [employer]. Pt has no PCP at this time. Received order to assist patient with PCP coordination. Pt discussed in multidisciplinary rounds. Pt to d/c today with no additional SW needs. SW met with pt at bedside to complete assessment. Pt resides in in an apartment with elevator access with his where he is independent at baseline. Pt's NOK and DPOA is Maximiliano Lopez, . Pt uses no DME at baseline, does not drive. Pt has history of HH in [place] approximately 7 years prior. Pt has no SNF history. Pt has no LTC or VA benefits. Pt's DPOA is on file. SW discussed the residency clinic with pt at bedside. Pt is agreeable to using this resource, SW provided pt with contact information. No appointment is able to be made as it is Thursday. Pt is agreeable to scheduling an appointment on Thursday. Pt confirms that his will be transporting him home, POV. No additional d/c needs. Assessment: Pt who is independent at baseline. Plan: Pt to d/c home with to transport via POV. Pt to call [facility] on Thursday to establish appointment. Contact information provided. No additional d/c needs. [place] Briz[place]a Addendum: 05/30/17 at 1211 by MIRIAM TAMAYO SS Amended: Links added.
[2017-05-30 12:04] VITALS: BP 134/75; PULSE 71; RESP 18; O2SAT 98
--- NOTE | 2017-05-30 13:34 | NUR ---
Discharge Pt d/cd home with at 1310 via wc by an aide. Pt denied pain, IV d/cd, VSS, all personal belongings left with pt. Discharge teaching included emphasis on AC BG checks, checking own blood glucose and continuously documenting values for PCP documentation.
== END 2017-05-30 13:05 | disposition home or self-care (01) | DRG 68 ==
LOC: EDBD 09:38 → SED 09:38 → EDUNIT# 09:38 → OBSVTOIN 13:34 → MPC 13:34
PROVIDERS: ADMIT Internal Medicine; ATTEND Internal Medicine
DX: I65.02 Occlusion and stenosis of left vertebral artery (principal); E11.9 Type 2 diabetes mellitus without complications; R27.0 Ataxia, unspecified